=== PATIENT | male | born 1945 ===

== ENCOUNTER 2018-09-14 10:35 | Outpatient (CLI) | payer OTHER ==
[~2018-09-14] VITALS: Ht 152.4 cm; Wt 64.9 kg
== END 2018-09-14 10:45 | disposition home or self-care (01) ==
LOC: OFIC 805 10:35
DX: H90.3 Sensorineural hearing loss, bilateral (principal)

== ENCOUNTER 2018-11-16 10:17 | Outpatient (CLI) | payer OTHER ==
[~2018-11-16] VITALS: Ht 152.4 cm; Wt 64.9 kg
== END 2018-11-16 10:35 | disposition home or self-care (01) ==
LOC: OFIC 805 10:17
DX: H90.3 Sensorineural hearing loss, bilateral (principal)